=== PATIENT | female | born 1975 | race Caucasian/White ===

== ENCOUNTER 2016-11-07 16:39 | Inpatient (IN) | payer MEDICARE, OTHER ==
[2016-11-07] MEDS ORDERED: SODIUM CHLORIDE 0.9% 1,000 ML IV STA (17:19)
--- NOTE | 2016-11-07 17:21 | ED ---
Syncope HPI - General Chief Complaint: Syncope Stated Complaint: dizziness Time Seen by Provider: 11/07/16 16:57 Source: patient, EMS Mode of arrival: EMS Limitations: no limitations - History of Present Illness Initial Comments: This patient is a 41-year-old woman who presents to be evaluated after syncopal episode. The patient states that she has had a series of these, including an episode last June, an episode 3 weeks ago an episode 2 days ago, and again today. The patient states that her prior physician who is out of [facility] , had been performing a bit of a workup, and had also given her medication in case she had had a seizure. The patient states that with this episode, she got up and then she blacked out. She denies chest pain, dyspnea, palpitations, diaphoresis. MD Complaint: loss of consciousness -: minutes(s) Prodromal Symptoms: lightheaded -: second(s) Witnessed: no Current Symptoms: none Context: standing up - Related Data Home Medications Medication Instructions Recorded Confirmed Acetaminophen with Codeine 1 tab PO Q12H PRN 11/07/16 11/07/16 [Tylenol w/codeine #4] Albuterol Inhaler [Ventolin Hfa 1 - 2 puff INHALATION RT-QID PRN 11/07/16 Inhaler] Cranberry/Vitamin C 4200mg 1 cap PO DAILY 11/07/16 11/07/16 FLUoxetine HCL [PROzac] 60 mg PO DAILY 11/07/16 11/07/16 Fluticasone Nasal Standard [Flonase 2 spr EA NOSTRIL DAILY 11/07/16 11/07/16 Nasal Standard] Insulin Aspart [NovoLOG Flexpen] See Protocol SQ ACHS 11/07/16 11/07/16 Insulin Glargine,Hum.rec.anlog 30 unit SQ BID 11/07/16 11/07/16 [Lantus Solostar] Lisinopril [Zestril] 20 mg PO DAILY 11/07/16 11/07/16 Melatonin 5 mg PO HS 11/07/16 11/07/16 Multivitamins, Thera [Multivitamin 1 tab PO DAILY 11/07/16 11/07/16 (formulary)] Phenylephrine HCl [Sudafed PE] 10 mg PO Q6H PRN 11/07/16 11/07/16 Pregabalin [Lyrica] 100 mg PO QID 11/07/16 11/07/16 Tolnaftate [Tinactin] 1 applic TOPICAL BID PRN 11/07/16 11/07/16 busPIRone HCL 15 mg PO BID 11/07/16 11/07/16 levETIRAcetam [Keppra] 500 mg PO BID 11/07/16 11/07/16 metFORMIN HCL [Glucophage] 500 mg PO AC-BID 11/07/16 11/07/16 Allergies Allergy/AdvReac Type Severity Reaction Status Date / Time No Known Allergies Allergy Verified 11/07/16 17:01 Review of Systems ROS Statement: Those systems with pertinent positive or pertinent negative responses have been documented in the HPI. ROS Other: All systems not noted in ROS Statement are negative. Constitutional: Reports: weakness (Generalized). Denies: fever, chills Eyes: Denies: vision change Respiratory: Denies: cough, dyspnea Cardiovascular: Reports: syncope. Denies: chest pain, palpitations, edema Gastrointestinal: Denies: abdominal pain, vomiting, diarrhea Genitourinary: Denies: dysuria, hematuria Musculoskeletal: Denies: back pain Skin: Denies: rash Neurological: Denies: headache, weakness, numbness Past Medical History Past Medical History: Coronary Artery Disease (CAD), Diabetes Mellitus, Liver Disease Additional Past Medical History / Comment(s): Hep C "genotype 4" History of Any Multi-Drug Resistant Organisms: MRSA Date of last positivie culture/infection: 2015 MDRO Source:: leg Past Surgical History: Section, Cholecystectomy Additional Past Surgical History / Comment(s): leg surgery, back tumor removal Past Psychological History: No Psychological Hx Reported Smoking Status: Never smoker Past Alcohol Use History: None Reported Past Drug Use History: None Reported General Exam Limitations: no limitations General appearance: alert, in no apparent distress Head exam: Present: atraumatic, normocephalic Eye exam: Present: normal appearance, PERRL, EOMI. Absent: scleral icterus, conjunctival injection, nystagmus ENT exam: Present: mucous membranes dry Neck exam: Present: normal inspection, full ROM. Absent: tenderness, meningismus Respiratory exam: Present: normal lung sounds bilaterally. Absent: respiratory distress, wheezes, rales, rhonchi, stridor, chest wall tenderness Cardiovascular Exam: Present: regular rate, normal rhythm, normal heart sounds. Absent: systolic murmur, diastolic murmur, rubs, gallop GI/Abdominal exam: Present: soft. Absent: distended, tenderness, guarding, rebound, mass Extremities exam: Present: normal inspection, normal capillary refill. Absent: pedal edema, calf tenderness Back exam: Present: normal inspection. Absent: CVA tenderness (R), CVA tenderness (L) Neurological exam: Present: alert, oriented X3, CN II-XII intact. Absent: motor sensory deficit Skin exam: Present: warm, dry, intact, normal color. Absent: rash Course Vital Signs 11/07/16 16:54 Temperature 98.6 F Pulse Rate 65 Respiratory 18 Rate Blood Pressure 90/50 O2 Sat by Pulse 96 Oximetry EKG Findings - EKG Results: EKG: interpreted by ORQUIDEA JACKSON, sinus rhythm (Rate approximate 67 bpm), normal axis, normal QRS, normal ST/T, no acute changes - NM, Pacemaker, Normal: Normal tracing: normal tracing Disposition Referrals: Nonstaff,Physician [Primary Care Provider] - 1-2 days
[2016-11-07 17:41] LABS: Basophils # (A) 0.1 k/uL (0-0.2); Basophils % (A) 1 %; CH 30.3; CHCM 33.9; Eosinophils # (A) 0.2 k/uL (0-0.7); Eosinophils % (A) 2 %; HCT 41.7 % (34.0-46.0); HDW 2.47; HGB 13.8 gm/dL (11.4-16.0); Luc # (Auto) 0.11; Luc % (Auto) 2; Lymphocytes % (A) 40 %; MCH 29.7 pg (25.0-35.0); MCHC 33.1 g/dL (31.0-37.0); MCV 89.8 fL (80.0-100.0); Mean Platelet Volume 8.7; Monocytes # (A) 0.3 k/uL (0-1.0); Monocytes % (A) 4 %; Neutrophils # (A) 3.9 k/uL (1.3-7.7); Neutrophils % (A) 51 %; RBC 4.65 m/uL (3.80-5.40); RDW 13.5 % (11.5-15.5); WBC 7.6 k/uL (3.8-10.6); WBC (Perox) 7.42
[2016-11-07 17:54] LABS: ALT 33 U/L (9-52); Alkaline Phosphatase 71 U/L (38-126); Anion Gap 7 mmol/L; Blood Urea Nitrogen 11 mg/dL (7-17); Calcium 9.2 mg/dL (8.4-10.2); Carbon Dioxide 23 mmol/L (22-30); Chloride 106 mmol/L (98-107); Glucose 297 mg/dL (74-99); Magnesium 1.4 mg/dL (1.6-2.3); Non-African American GFR(MDRD) >60 (>60 ml/min/1.73 sqM); Sodium 136 mmol/L (137-145); Total Bilirubin 0.8 mg/dL (0.2-1.3); Total Protein 6.8 g/dL (6.3-8.2)
[2016-11-07 17:55] LABS: Partial Thromboplastin Time 23.9 sec (22.0-30.0); Prothrombin Time 10.5 sec (9.0-12.0)
[2016-11-07 18:01] LABS: Potassium 5.4 mmol/L (3.5-5.1)
[2016-11-07 18:02] LABS: AST 45 U/L (14-36)
[2016-11-07 18:08] LABS: Creatine Kinase 52 U/L (30-135)
--- NOTE | 2016-11-07 18:17 | CT ---
EXAMINATION TYPE: CT brain hannah arreguin DATE OF EXAM: 11/07/2016 COMPARISON: NONE HISTORY: Patient complains of syncopeal episode today with probable fall. Patient has no head or nec k complaints at time of study. CT DLP: 1300.5 mGycm Automated exposure control for dose reduction was used. TECHNIQUE: CT scan of the head and cervical spine are performed without contrast. FINDINGS: Ventricles of normal size. There is no mass effect nor midline shift. There is no sign of intracranial hemorrhage. The calvarium is intact. Cervical vertebra have normal spacing and alignment. Posterior elements are intact. Facet joints appe ar normal. Skull base is intact. IMPRESSION: Negative CT scan of the brain. Negative CT scan of the cervical spine.
--- NOTE | 2016-11-07 18:18 | XR ---
EXAMINATION TYPE: XR chest 1V portable DATE OF EXAM: 11/07/2016 COMPARISON: NONE HISTORY: Syncope TECHNIQUE: Single frontal view of the chest is obtained. FINDINGS: Heart and mediastinum are normal. Lungs are clear. Diaphragm is normal. There are chest le ads. IMPRESSION: Normal chest
[2016-11-07 18:20] LABS: Creatine Kinase MB 0.5 ng/mL (0.0-2.4); Troponin I <0.012 ng/mL (0.000-0.034)
[2016-11-07 18:46] LABS: Appearance,Urine Cloudy (Clear); Bacteria,Urine Many /hpf; Bilirubin,Urine Negative (Negative); Glucose,Urine (UA) 4+ (Negative); Ketones,Urine Negative (Negative); Leukocyte Esterase,Urine Moderate (Negative); Mucus,Urine Rare /hpf; Nitrite,Urine Positive (Negative); Particle Count 51760; Protein,Urine Negative (Negative); RBC,Urine 8 /hpf (0-5); Specific Gravity,Urine 1.009 (1.001-1.035); Squamous Epithelial Cell,Urine 4 /hpf (0-4); UA Billing (MACRO vs. MICRO) MICRO; Urobilinogen,Urine <2.0 mg/dL (<2.0); WBC,Urine 73 /hpf (0-5)
[2016-11-07] MEDS ORDERED: MAGNESIUM SULFATE-D5W PMX 1 GM in DEXTROSE/WATER 1 100ML.BAG IVPB ONE (18:50)
[2016-11-07] MEDS ORDERED: SODIUM CHLORIDE 0.9% 1,000 ML IV ONE (18:50)
[2016-11-07] MEDS ORDERED: INSULIN REGULAR 100 UNIT/ML VIAL SQ STA (18:50)
[2016-11-07] MEDS ORDERED: ACETAMINOPHEN TAB 325 MG TAB PO STA (19:00)
[2016-11-07] MEDS ORDERED: IBUPROFEN 600 MG TAB PO STA (19:00)
[2016-11-07] MEDS ORDERED: Acetaminophen-Codeine 300-30mg TAB PO PRN (19:19)
[2016-11-07] MEDS ORDERED: ALBUTEROL NEBULIZED 2.5 MG/3 ML INHALATION PRN (19:19)
[2016-11-07] MEDS ORDERED: CLOTRIMAZOLE 1% CREAM 15 GM TUBE TOPICAL PRN (19:19)
[2016-11-07] MEDS: MELATONIN 5 MG TABLET PO SCH (20:45)
[2016-11-07] MEDS: levETIRAcetam 500 MG TAB PO SCH (20:45)
[2016-11-07] MEDS: busPIRone HCl 5 MG TAB PO SCH (20:45)
[2016-11-07] MEDS: PREGABALIN 100 MG CAP PO SCH (20:49)
[2016-11-07 21:01] LABS: Glucose,Whole Blood 340 mg/dL (75-99)
[2016-11-07] MEDS: INSULIN LISPRO (humaLOG) 300 UNIT/3 ML VIAL SQ SCH (21:26)
[2016-11-07] MEDS: INSULIN GLARGINE 100 UNIT/ML 10 ML VIAL SQ SCH (21:28)
[2016-11-07] MEDS: metFORMIN 500 MG TAB PO SCH (21:28)
[2016-11-07] MEDS: SODIUM CHLORIDE 0.9% 1,000 ML IV SCH (21:29)
[2016-11-07 22:06] LABS: Hemoglobin A1C 9.2 % (4.2-6.1)
[2016-11-07] MEDS: CIPROFLOXACIN HCL 500 MG TAB PO SCH (23:20)
[2016-11-07 23:22] LABS: Creatine Kinase 33 U/L (30-135)
[2016-11-07] MEDS: IBUPROFEN 600 MG TAB PO PRN (23:23)
[2016-11-07 23:36] LABS: Creatine Kinase MB 0.4 ng/mL (0.0-2.4); Troponin I <0.012 ng/mL (0.000-0.034)
[2016-11-08 00:16] LABS: Glucose,Whole Blood 50 mg/dL (75-99)
[2016-11-08 00:50] LABS: Glucose,Whole Blood 77 mg/dL (75-99)
[2016-11-08] MEDS: Acetaminophen-Codeine 300-30mg TAB PO PRN ×3 (04:39→20:19)
[2016-11-08 04:52] LABS: Cholesterol 162 mg/dL (<200); HDL Cholesterol 32 mg/dL (40-60)
[2016-11-08 05:03] LABS: Creatine Kinase 38 U/L (30-135)
[2016-11-08 05:15] LABS: Creatine Kinase MB 0.5 ng/mL (0.0-2.4); Troponin I <0.012 ng/mL (0.000-0.034)
[2016-11-08] MEDS: IBUPROFEN 600 MG TAB PO PRN ×3 (05:47→21:37)
[2016-11-08 05:48] LABS: Glucose,Whole Blood 97 mg/dL (75-99)
[2016-11-08] MEDS: SODIUM CHLORIDE 0.9% 1,000 ML IV SCH ×2 (05:48→16:36)
[2016-11-08] MEDS: INSULIN LISPRO (humaLOG) 300 UNIT/3 ML VIAL SQ SCH ×4 (05:48→21:40)
[2016-11-08] MEDS: metFORMIN 500 MG TAB PO SCH ×2 (06:42→17:01)
[2016-11-08] MEDS ORDERED: metFORMIN 500 MG TAB PO SCH (07:30)
[2016-11-08] MEDS: FLUTICASONE 50MCG/SPRAY NASAL 16GM EA NOSTRIL SCH (07:48)
[2016-11-08] MEDS: PREGABALIN 100 MG CAP PO SCH ×4 (07:48→20:19)
[2016-11-08] MEDS: MULTIVITAMINS, THERA 1 EACH TAB PO SCH (07:48)
[2016-11-08] MEDS: FLUoxetine HCL 20 MG CAP PO SCH (07:49)
[2016-11-08] MEDS: busPIRone HCl 5 MG TAB PO SCH ×2 (07:49→20:14)
[2016-11-08] MEDS: CIPROFLOXACIN HCL 500 MG TAB PO SCH ×2 (07:49→20:14)
[2016-11-08] MEDS: levETIRAcetam 500 MG TAB PO SCH ×2 (07:49→20:15)
[2016-11-08] MEDS: INSULIN GLARGINE 100 UNIT/ML 10 ML VIAL SQ SCH ×2 (07:49→21:40)
--- NOTE | 2016-11-08 08:11 | P.CRDCN ---
History of Present Illness Consult date: 11/08/16 Requesting physician: Gurpreet Weir Consult reason: sycope Chief complaint: Syncope History of present illness: This is a 41-year-old female with history of hypertension, diabetes, hyperlipidemia, hepatitis C nonsmoker, occasional marijuana use most recently on Tuesday, rare EtOH, family history of premature coronary artery disease. She presented to the hospital with a syncopal episode. According to the patient she 's been having episodes where she becomes extremely dizzy and then passes out. In August of this year she was started on medication for seizures although she states she has not had a neurological evaluation performed. In spite of being put on this medication, patient continues to have a syncopal episodes. Chest x- ray normal. CAT scan of the head and spine normal. EKG on admission showed normal sinus rhythm with no acute changes. Blood pressure on arrival here 90/50 , heart rate in the 60s, afebrile, 96% on room air. CBC normal, d-dimer negative. Potassium 5.4, sodium 136, BUN 11, creatinine 0.5. Glucose on arrival 340, hemoglobin A1c 9.2, magnesium level I.4 which was replaced, and some 1.7 this morning. Troponins 3 have been negative. Positive UTI. At the time of my examination this morning, patient denies any dizziness or lightheadedness. Blood pressure sitting 110/70, heart rate in the 50s. Past Medical History Past Medical History: Coronary Artery Disease (CAD), Diabetes Mellitus, Liver Disease Additional Past Medical History / Comment(s): Hep C "genotype 4" History of Any Multi-Drug Resistant Organisms: MRSA Date of last positivie culture/infection: 2015 MDRO Source:: leg Past Surgical History: Section, Cholecystectomy Additional Past Surgical History / Comment(s): x3, leg surgery, back tumor removal Past Psychological History: No Psychological Hx Reported Smoking Status: Current some day smoker Past Alcohol Use History: None Reported Past Drug Use History: None Reported - Past Family History Mother Family Medical History: Cancer Additional Family Medical History / Comment(s): of breast ca Father Family Medical History: Unable to Obtain Medications and Allergies Home Medications Medication Instructions Recorded Confirmed Type Acetaminophen with Codeine 1 tab PO Q12H PRN 11/07/16 11/07/16 History [Tylenol w/codeine #4] Albuterol Inhaler [Ventolin Hfa 1 - 2 puff INHALATION RT-QID PRN 11/07/16 History Inhaler] Cranberry/Vitamin C 4200mg 1 cap PO DAILY 11/07/16 11/07/16 History FLUoxetine HCL [PROzac] 60 mg PO DAILY 11/07/16 11/07/16 History Fluticasone Nasal [place] [Flonase 2 spr EA NOSTRIL DAILY 11/07/16 11/07/16 History Nasal [place]] Insulin Aspart [NovoLOG Flexpen] See Protocol SQ ACHS 11/07/16 11/07/16 History Insulin Glargine,Hum.rec.anlog 30 unit SQ BID 11/07/16 11/07/16 History [Lantus Solostar] Lisinopril [Zestril] 20 mg PO DAILY 11/07/16 11/07/16 History Melatonin 5 mg PO HS 11/07/16 11/07/16 History Multivitamins, Thera [Multivitamin 1 tab PO DAILY 11/07/16 11/07/16 History (formulary)] Phenylephrine HCl [Sudafed PE] 10 mg PO Q6H PRN 11/07/16 11/07/16 History Pregabalin [Lyrica] 100 mg PO QID 11/07/16 11/07/16 History Tolnaftate [Tinactin] 1 applic TOPICAL BID PRN 11/07/16 11/07/16 History busPIRone HCL 15 mg PO BID 11/07/16 11/07/16 History levETIRAcetam [Keppra] 500 mg PO BID 11/07/16 11/07/16 History metFORMIN HCL [Glucophage] 500 mg PO AC-BID 11/07/16 11/07/16 History Allergies Allergy/AdvReac Type Severity Reaction Status Date / Time No Known Allergies Allergy Verified 11/07/16 17:01 Physical Exam Vitals: Vital Signs Temp Pulse Pulse Pulse Pulse Resp BP 11/08/16 07:53 97 F L 58 L 18 11/08/16 04:00 97.2 F L 55 L 18 11/08/16 00:00 52 L 18 11/07/16 20:15 98.3 F 58 L 18 121/73 11/07/16 20:00 96.1 F L 56 L 18 11/07/16 19:12 56 L 102/66 11/07/16 18:42 60 101/58 11/07/16 18:19 62 105/55 11/07/16 17:53 66 77 62 11/07/16 16:54 98.6 F 65 18 90/50 BP BP BP BP Pulse Ox 11/08/16 07:53 109/70 98 11/08/16 04:00 105/67 96 11/08/16 00:00 95/51 98 11/07/16 20:15 100 11/07/16 20:00 101/63 100 11/07/16 19:12 99 11/07/16 18:42 99 11/07/16 18:19 99 11/07/16 17:53 82/53 87/57 84/54 11/07/16 16:54 96 Intake and Output 11/07/16 11/08/16 11/08/16 22:59 06:59 14:59 Intake Total 1000 200 Output Total 300 Balance 1000 -100 Intake: IV 1000 Sodium Chloride 0.9% 1, 1000 000 ml @ 100 mls/hr IV . Q10H [facility] Rx#:[id number] Oral 200 Output: Urine 300 Other: # Voids 2 Weight 68.039 kg 72.7 kg PHYSICAL EXAMINATION: HEENT: Head is atraumatic, normocephalic. Pupils equal, round. Neck is supple. There is no elevated jugular venous pressure. HEART EXAMINATION: Heart S1, S2 normal. No murmur or gallop heard. CHEST EXAMINATION: Lungs are clear to auscultation and precussion. No chest wall tenderness is noted on palpation or with deep breathing. ABDOMEN: Soft, nontender. Bowel sounds are heard. No organomegaly noted. EXTREMITIES: 2+ peripheral pulses with no evidence of peripheral edema and no calf tenderness noted. NEUROLOGIC patient is awake, alert and oriented -3. . Results 11/07/16 16:47 11/08/16 00:52 Cardiac Enzymes 11/07/16 11/07/16 11/07/16 Range/Units 16:47 16:47 22:31 AST 45 H (14-36) U/L CK-MB (CK-2) 0.5 0.4 (0.0-2.4) ng/mL Troponin I <0.012 <0.012 (0.000-0.034) ng/mL 11/08/16 Range/Units 04:27 AST (14-36) U/L CK-MB (CK-2) 0.5 (0.0-2.4) ng/mL Troponin I <0.012 (0.000-0.034) ng/mL Coagulation 11/07/16 Range/Units 16:47 PT 10.5 (9.0-12.0) sec APTT 23.9 (22.0-30.0) sec Lipids 11/08/16 Range/Units 04:27 Triglycerides 143 (<150) mg/dL Cholesterol 162 (<200) mg/dL HDL Cholesterol 32 L (40-60) mg/dL CBC 11/07/16 Range/Units 16:47 WBC 7.6 (3.8-10.6) k/uL RBC 4.65 (3.80-5.40) m/uL Hgb 13.8 (11.4-16.0) gm/dL Hct 41.7 (34.0-46.0) % Plt Count 257 (150-450) k/uL Comprehensive Metabolic Panel 11/07/16 11/08/16 Range/Units 16:47 00:52 Sodium 136 L (137-145) mmol/L Potassium 5.4 H (3.5-5.1) mmol/L Chloride 106 (98-107) mmol/L Carbon Dioxide 23 (22-30) mmol/L BUN 11 (7-17) mg/dL Creatinine 0.55 (0.52-1.04) mg/dL Glucose 297 H 89 (74-99) mg/dL Calcium 9.2 (8.4-10.2) mg/dL AST 45 H (14-36) U/L ALT 33 (9-52) U/L Alkaline Phosphatase 71 (38-126) U/L Total Protein 6.8 (6.3-8.2) g/dL Albumin 4.0 (3.5-5.0) g/dL Current Medications Generic Name Dose Route Start Last Admin Trade Name Freq PRN Reason Stop Dose Admin Acetaminophen/Codeine Phosphate 1 each 11/07/16 21:17 11/08/16 04:39 Tylenol #3 PO 1 each Q6HR PRN Administration Pain Albuterol Sulfate 2.5 mg 11/07/16 19:19 Ventolin Nebulized INHALATION RT-QID PRN Shortness Of Breath Aspirin 325 mg 11/08/16 09:00 11/08/16 07:48 Aspirin PO 325 mg DAILY [facility] Administration Buspirone HCl 15 mg 11/07/16 21:00 11/08/16 07:49 Buspar PO 15 mg BID [facility] Administration Ciprofloxacin 500 mg 11/07/16 23:00 11/08/16 07:49 Cipro PO 11/10/16 23:01 500 mg BID [facility] Administration Clotrimazole 1 applic 11/07/16 19:19 Lotrimin Cream TOPICAL BID PRN Skin Irritation Fluoxetine HCl 60 mg 11/08/16 09:00 11/08/16 07:49 Prozac PO 60 mg DAILY [facility] Administration Fluticasone Propionate 2 spray 11/08/16 09:00 11/08/16 07:48 Flonase Nasal [place] EA NOSTRIL 2 spray DAILY [facility] Administration Sodium Chloride 1,000 mls @ 100 mls/hr 11/07/16 19:30 11/08/16 05:48 Saline 0.9% IV 100 mls/hr .Q10H [facility] Administration Ibuprofen 600 mg 11/07/16 22:45 11/08/16 05:47 Motrin PO 600 mg Q6HR PRN Administration Moderate Pain Insulin Glargine 30 unit 11/07/16 21:15 11/08/16 07:49 Lantus SQ 30 unit BID [facility] Administration Insulin Human Lispro 0 unit 11/07/16 21:00 11/08/16 05:48 Humalog SQ Not Given ACHS [facility] Protocol Levetiracetam 500 mg 11/07/16 21:00 11/08/16 07:49 Keppra PO 500 mg BID [facility] Administration Lisinopril 20 mg 11/08/16 09:00 11/08/16 07:49 Zestril PO 20 mg DAILY [facility] Administration Melatonin 5 mg 11/07/16 21:00 11/07/16 20:45 Melatonin PO 5 mg HS [facility] Administration Metformin HCl 500 mg 11/07/16 21:30 11/08/16 06:42 Glucophage PO 500 mg AC-BID [facility] Administration Multivitamins 1 each 11/08/16 12:00 11/08/16 07:48 Theragran PO 1 each DAILY@1200 [facility] Administration Pregabalin 100 mg 11/07/16 22:00 11/08/16 07:48 Lyrica PO 100 mg QID [facility] Administration Intake and Output 11/07/16 11/08/16 11/08/16 22:59 06:59 14:59 Intake Total 1000 200 Output Total 300 Balance 1000 -100 Intake: IV 1000 Sodium Chloride 0.9% 1, 1000 000 ml @ 100 mls/hr IV . Q10H [facility] Rx#:[id number] Oral 200 Output: Urine 300 Other: # Voids 2 Weight 68.039 kg 72.7 kg 11/07/16 16:47 11/08/16 00:52 EKG Interpretations (text) EKG shows normal sinus rhythm with no acute changes. Assessment and Plan Plan: Assessment and plan #1 symptoms of dizziness with subsequent syncopal episodes. CT of the brain negative. #2 diagnosis of seizures in the past, patient recently started on seizure medication in the form of Keppra in August of this year. #3 hypertension, on lisinopril #4 diabetes, uncontrolled # 5 hyperlipidemia #6 hepatitis C #7 smoking history, patient states she quit smoking approximately 2 years ago Plan We will obtain an echocardiogram with Doppler study. Continue to monitor for any tachycardia or bradycardia arrhythmias. We will also check orthostatic blood pressure and heart rate every shift. Further recommendations to follow. DNP note has been reviewed, I agree with a documented findings and plan of care. Patient was seen and examined.
[2016-11-08] MEDS ORDERED: LISINOPRIL 20 MG TAB PO SCH (09:00)
[2016-11-08] MEDS ORDERED: ASPIRIN 325 MG TAB PO SCH (09:00)
--- NOTE | 2016-11-08 10:24 | ECHOF ---
Referral Reason:syncope MEASUREMENTS -------- HEIGHT: 162.6 cm WEIGHT: 72.6 kg BP: 109/70 IVSd: 1.1 cm (0.6 - 1.1) LVIDd: 4.0 cm (3.9 - 5.3) LVPWd: 1.0 cm (0.6 - 1.1) IVSs: 1.4 cm LVIDs: 2.8 cm LVPWs: 1.4 cm Ao Diam: 2.7 cm (2.0 - 3.7) AV Cusp: 1.8 cm (1.5 - 2.6) LA Diam: 3.4 cm (2.7 - 3.8) MV EXCURSION: 6.377 mm (> 18.000) MV EF SLOPE: 81 mm/s (70 - 150) EPSS: 0.9 cm MV E Larry: 1.23 m/s MV DecT: 221 ms MV A Larry: 0.45 m/s MV E/A Ratio: 2.71 RAP: 5.00 mmHg RVSP: 24.33 mmHg FINDINGS -------- Sinus rhythm. This was a technically good study. Left ventricular wall thickness is normal. Overall left ventricular systolic function is normal with, an EF between 55 - 60 %. The right ventricle is normal in size and function. The left atrium is normal in size. The right atrium is normal in size. The aortic valve is trileaflet, and appears structurally normal. No aortic stenosis or regurgitation. There is trace mitral regurgitation. Mild tricuspid regurgitation present. The right ventricular systolic pressure, as measured by Doppler, is 24.33mmHg. Pulmonic valve appears structurally normal. The aortic root size is normal. The pericardium is normal. CONCLUSIONS -------- 1. Sinus rhythm. 2. Mild tricuspid regurgitation present. 3. The right ventricular systolic pressure, as measured by Doppler, is 24.33mmHg. 4. Pulmonic valve appears structurally normal. 5. The aortic root size is normal. 6. The pericardium is normal. 7. This was a technically good study. 8. Left ventricular wall thickness is normal. 9. Overall left ventricular systolic function is normal with, an EF between 55 - 60 %. 10. The right ventricle is normal in size and function. 11. The left atrium is normal in size. 12. The right atrium is normal in size. 13. The aortic valve is trileaflet, and appears structurally normal. No aortic stenosis or regurgitation. 14. There is trace mitral regurgitation. SPOUT POSITIONER: Lyudmila Henderson RDCS
--- NOTE | 2016-11-08 10:56 | P.CRDCN ---
History of Present Illness History of present illness: Patient interviewed and examined 2 episodes of dizziness followed by brief syncope and fall Both episodes occurred immediately upon standing up. 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 Date of last positivie culture/infection: 2015 MDRO Source:: leg Past Surgical History: Section, Cholecystectomy Additional Past Surgical History / Comment(s): x3, leg surgery, back tumor removal Past Psychological History: No Psychological Hx Reported Smoking Status: Current some day smoker Past Alcohol Use History: None Reported Past Drug Use History: None Reported - Past Family History Mother Family Medical History: Cancer Additional Family Medical History / Comment(s): of breast ca Father Family Medical History: Unable to Obtain Medications and Allergies Home Medications Medication Instructions Recorded Confirmed Type Acetaminophen with Codeine 1 tab PO Q12H PRN 11/07/16 11/07/16 History [Tylenol w/codeine #4] Albuterol Inhaler [Ventolin Hfa 1 - 2 puff INHALATION RT-QID PRN 11/07/16 History Inhaler] Cranberry/Vitamin C 4200mg 1 cap PO DAILY 11/07/16 11/07/16 History FLUoxetine HCL [PROzac] 60 mg PO DAILY 11/07/16 11/07/16 History Fluticasone Nasal [place] [Flonase 2 spr EA NOSTRIL DAILY 11/07/16 11/07/16 History Nasal [place]] Insulin Aspart [NovoLOG Flexpen] See Protocol SQ ACHS 11/07/16 11/07/16 History Insulin Glargine,Hum.rec.anlog 30 unit SQ BID 11/07/16 11/07/16 History [Lantus Solostar] Lisinopril [Zestril] 20 mg PO DAILY 11/07/16 11/07/16 History Melatonin 5 mg PO HS 11/07/16 11/07/16 History Multivitamins, Thera [Multivitamin 1 tab PO DAILY 11/07/16 11/07/16 History (formulary)] Phenylephrine HCl [Sudafed PE] 10 mg PO Q6H PRN 11/07/16 11/07/16 History Pregabalin [Lyrica] 100 mg PO QID 11/07/16 11/07/16 History Tolnaftate [Tinactin] 1 applic TOPICAL BID PRN 11/07/16 11/07/16 History busPIRone HCL 15 mg PO BID 11/07/16 11/07/16 History levETIRAcetam [Keppra] 500 mg PO BID 11/07/16 11/07/16 History metFORMIN HCL [Glucophage] 500 mg PO AC-BID 11/07/16 11/07/16 History Allergies Allergy/AdvReac Type Severity Reaction Status Date / Time No Known Allergies Allergy Verified 11/07/16 17:01 Physical Exam Vitals: Vital Signs Temp Pulse Pulse Pulse Pulse Resp BP 11/08/16 08:44 11/08/16 08:00 18 11/08/16 07:53 97 F L 58 L 18 11/08/16 04:00 97.2 F L 55 L 18 11/08/16 00:00 52 L 18 11/07/16 20:15 98.3 F 58 L 18 121/73 11/07/16 20:00 96.1 F L 56 L 18 11/07/16 19:12 56 L 102/66 11/07/16 18:42 60 101/58 11/07/16 18:19 62 105/55 11/07/16 17:53 66 77 62 11/07/16 16:54 98.6 F 65 18 90/50 BP BP BP BP Pulse Ox 11/08/16 08:44 126/70 111/67 115/66 11/08/16 08:00 11/08/16 07:53 109/70 98 11/08/16 04:00 105/67 96 11/08/16 00:00 95/51 98 11/07/16 20:15 100 11/07/16 20:00 101/63 100 11/07/16 19:12 99 11/07/16 18:42 99 11/07/16 18:19 99 11/07/16 17:53 82/53 87/57 84/54 11/07/16 16:54 96 Intake and Output 11/07/16 11/08/16 11/08/16 22:59 06:59 14:59 Intake Total 1000 200 Output Total 300 Balance 1000 -100 Intake: IV 1000 Sodium Chloride 0.9% 1, 1000 000 ml @ 100 mls/hr IV . Q10H [facility] Rx#:[id number] Oral 200 Output: Urine 300 Other: # Voids 2 Weight 68.039 kg 72.7 kg Results 11/07/16 16:47 11/08/16 00:52 Cardiac Enzymes 11/07/16 11/07/16 11/07/16 Range/Units 16:47 16:47 22:31 AST 45 H (14-36) U/L CK-MB (CK-2) 0.5 0.4 (0.0-2.4) ng/mL Troponin I <0.012 <0.012 (0.000-0.034) ng/mL 11/08/16 Range/Units 04:27 AST (14-36) U/L CK-MB (CK-2) 0.5 (0.0-2.4) ng/mL Troponin I <0.012 (0.000-0.034) ng/mL Coagulation 11/07/16 Range/Units 16:47 PT 10.5 (9.0-12.0) sec APTT 23.9 (22.0-30.0) sec Lipids 11/08/16 Range/Units 04:27 Triglycerides 143 (<150) mg/dL Cholesterol 162 (<200) mg/dL HDL Cholesterol 32 L (40-60) mg/dL CBC 11/07/16 Range/Units 16:47 WBC 7.6 (3.8-10.6) k/uL RBC 4.65 (3.80-5.40) m/uL Hgb 13.8 (11.4-16.0) gm/dL Hct 41.7 (34.0-46.0) % Plt Count 257 (150-450) k/uL Comprehensive Metabolic Panel 11/07/16 11/08/16 Range/Units 16:47 00:52 Sodium 136 L (137-145) mmol/L Potassium 5.4 H (3.5-5.1) mmol/L Chloride 106 (98-107) mmol/L Carbon Dioxide 23 (22-30) mmol/L BUN 11 (7-17) mg/dL Creatinine 0.55 (0.52-1.04) mg/dL Glucose 297 H 89 (74-99) mg/dL Calcium 9.2 (8.4-10.2) mg/dL AST 45 H (14-36) U/L ALT 33 (9-52) U/L Alkaline Phosphatase 71 (38-126) U/L Total Protein 6.8 (6.3-8.2) g/dL Albumin 4.0 (3.5-5.0) g/dL Current Medications Generic Name Dose Route Start Last Admin Trade Name Freq PRN Reason Stop Dose Admin Acetaminophen/Codeine Phosphate 1 each 11/07/16 21:17 11/08/16 10:39 Tylenol #3 PO 1 each Q6HR PRN Administration Pain Albuterol Sulfate 2.5 mg 11/07/16 19:19 Ventolin Nebulized INHALATION RT-QID PRN Shortness Of Breath Aspirin 325 mg 11/08/16 09:00 11/08/16 07:48 Aspirin PO 325 mg DAILY [facility] Administration Buspirone HCl 15 mg 11/07/16 21:00 11/08/16 07:49 Buspar PO 15 mg BID [facility] Administration Ciprofloxacin 500 mg 11/07/16 23:00 11/08/16 07:49 Cipro PO 11/10/16 23:01 500 mg BID [facility] Administration Clotrimazole 1 applic 11/07/16 19:19 Lotrimin Cream TOPICAL BID PRN Skin Irritation Fluoxetine HCl 60 mg 11/08/16 09:00 11/08/16 07:49 Prozac PO 60 mg DAILY [facility] Administration Fluticasone Propionate 2 spray 11/08/16 09:00 11/08/16 07:48 Flonase Nasal [place] EA NOSTRIL 2 spray DAILY [facility] Administration Sodium Chloride 1,000 mls @ 100 mls/hr 11/07/16 19:30 11/08/16 05:48 Saline 0.9% IV 100 mls/hr .Q10H [facility] Administration Ibuprofen 600 mg 11/07/16 22:45 11/08/16 05:47 Motrin PO 600 mg Q6HR PRN Administration Moderate Pain Insulin Glargine 30 unit 11/07/16 21:15 11/08/16 07:49 Lantus SQ 30 unit BID [facility] Administration Insulin Human Lispro 0 unit 11/07/16 21:00 11/08/16 05:48 Humalog SQ Not Given ACHS [facility] Protocol Levetiracetam 500 mg 11/07/16 21:00 11/08/16 07:49 Keppra PO 500 mg BID [facility] Administration Lisinopril 20 mg 11/08/16 09:00 11/08/16 07:49 Zestril PO 20 mg DAILY [facility] Administration Melatonin 5 mg 11/07/16 21:00 11/07/16 20:45 Melatonin PO 5 mg HS [facility] Administration Metformin HCl 500 mg 11/07/16 21:30 11/08/16 06:42 Glucophage PO 500 mg AC-BID [facility] Administration Multivitamins 1 each 11/08/16 12:00 11/08/16 07:48 Theragran PO 1 each DAILY@1200 [facility] Administration Pregabalin 100 mg 11/07/16 22:00 11/08/16 07:48 Lyrica PO 100 mg QID [facility] Administration Intake and Output 11/07/16 11/08/16 11/08/16 22:59 06:59 14:59 Intake Total 1000 200 Output Total 300 Balance 1000 -100 Intake: IV 1000 Sodium Chloride 0.9% 1, 1000 000 ml @ 100 mls/hr IV . Q10H [facility] Rx#:[id number] Oral 200 Output: Urine 300 Other: # Voids 2 Weight 68.039 kg 72.7 kg 11/07/16 16:47 11/08/16 00:52
[2016-11-08 11:39] LABS: Glucose,Whole Blood 170 mg/dL (75-99)
[2016-11-08 15:21] VITALS: BMI 27.5
--- NOTE | 2016-11-08 15:36 | P.HPIM ---
History of Present Illness H&P Date: 11/08/16 Chief Complaint: Syncope This is a 41-year-old female comes in the hospital after sustaining a syncopal episode. Patient states that she loss consciousness for less than 5 seconds. Patient has had a previous history of this for over 2 years. Patient was evaluated at another facility. Patient was seen by a neurologist in the [facility]. Patient initially was thought to have seizure disorder as patient has had one episode with loss of bladder function. Apparently EEGs at that time were negative for any acute abnormalities patient was started on Keppra however continued to have these episodes of losing consciousness and generalized weakness for short duration Patient comes in to the hospital as she is visiting someone in the area Patient apparently has a history of occasional marijuana use hepatitis C dyslipidemia diabetes mellitus hypertension. Patient sustained a fall on her right shoulder and x-ray in the emergency room was negative UA appears to be slightly abnormal however patient denies having any symptoms CAT scan of the head was negative EKG does not show ST-T wave changes however is slightly bradycardic. Patient blood pressures are borderline low. 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 Date of last positivie culture/infection: 2015 MDRO Source:: leg Past Surgical History: Section, Cholecystectomy Additional Past Surgical History / Comment(s): x3, leg surgery, back tumor removal Past Psychological History: No Psychological Hx Reported Smoking Status: Current some day smoker Past Alcohol Use History: None Reported Past Drug Use History: None Reported - Past Family History Mother Family Medical History: Cancer Additional Family Medical History / Comment(s): of breast ca Father Family Medical History: Unable to Obtain Medications and Allergies Home Medications Medication Instructions Recorded Confirmed Type Acetaminophen with Codeine 1 tab PO Q12H PRN 11/07/16 11/07/16 History [Tylenol w/codeine #4] Albuterol Inhaler [Ventolin Hfa 1 - 2 puff INHALATION RT-QID PRN 11/07/16 History Inhaler] Cranberry/Vitamin C 4200mg 1 cap PO DAILY 11/07/16 11/07/16 History FLUoxetine HCL [PROzac] 60 mg PO DAILY 11/07/16 11/07/16 History Fluticasone Nasal [place] [Flonase 2 spr EA NOSTRIL DAILY 11/07/16 11/07/16 History Nasal [place]] Insulin Aspart [NovoLOG Flexpen] See Protocol SQ ACHS 11/07/16 11/07/16 History Insulin Glargine,Hum.rec.anlog 30 unit SQ BID 11/07/16 11/07/16 History [Lantus Solostar] Lisinopril [Zestril] 20 mg PO DAILY 11/07/16 11/07/16 History Melatonin 5 mg PO HS 11/07/16 11/07/16 History Multivitamins, Thera [Multivitamin 1 tab PO DAILY 11/07/16 11/07/16 History (formulary)] Phenylephrine HCl [Sudafed PE] 10 mg PO Q6H PRN 11/07/16 11/07/16 History Pregabalin [Lyrica] 100 mg PO QID 11/07/16 11/07/16 History Tolnaftate [Tinactin] 1 applic TOPICAL BID PRN 11/07/16 11/07/16 History busPIRone HCL 15 mg PO BID 11/07/16 11/07/16 History levETIRAcetam [Keppra] 500 mg PO BID 11/07/16 11/07/16 History metFORMIN HCL [Glucophage] 500 mg PO AC-BID 11/07/16 11/07/16 History Allergies Allergy/AdvReac Type Severity Reaction Status Date / Time No Known Allergies Allergy Verified 11/07/16 17:01 Physical Exam Vitals: Vital Signs Temp Pulse Pulse Pulse Pulse Resp BP 11/08/16 12:00 97.2 F L 61 18 11/08/16 08:44 11/08/16 08:00 18 11/08/16 07:53 97 F L 58 L 18 11/08/16 04:00 97.2 F L 55 L 18 11/08/16 00:00 52 L 18 11/07/16 20:15 98.3 F 58 L 18 121/73 11/07/16 20:00 96.1 F L 56 L 18 11/07/16 19:12 56 L 102/66 11/07/16 18:42 60 101/58 11/07/16 18:19 62 105/55 11/07/16 17:53 66 77 62 11/07/16 16:54 98.6 F 65 18 90/50 BP BP BP BP Pulse Ox 11/08/16 12:00 115/60 98 11/08/16 08:44 126/70 111/67 115/66 11/08/16 08:00 11/08/16 07:53 109/70 98 11/08/16 04:00 105/67 96 11/08/16 00:00 95/51 98 11/07/16 20:15 100 11/07/16 20:00 101/63 100 11/07/16 19:12 99 11/07/16 18:42 99 11/07/16 18:19 99 11/07/16 17:53 82/53 87/57 84/54 11/07/16 16:54 96 Intake and Output 11/08/16 11/08/16 11/08/16 06:59 14:59 22:59 Intake Total 1000 200 Output Total 1700 Balance 1000 -1500 Intake: IV 1000 Sodium Chloride 0.9% 1, 1000 000 ml @ 100 mls/hr IV . Q10H [facility] Rx#:[id number] Oral 200 Output: Urine 1700 Other: # Voids 2 Weight 72.7 kg 72.7 kg Patient Weight 11/09/16 06:59 Weight 72.7 kg Physical exam Gen. appearance oriented 3 in no distress Neck is supple no JVD Lungs good air entry clear to auscultation no rhonchi or wheezing Heart S1-S2 heard regular rate and rhythm no murmurs appreciated Abdomen is soft nontender no organomegaly bowel sounds are intact Neurologically cranial nerves II-12 grossly intact no focal motor or sensory deficits noted Skin no abnormalities appreciated musculoskeletal Significant tenderness over the right shoulder worsened with range of motion. Results CBC & Chem 7: 11/07/16 16:47 11/08/16 00:52 Labs: Abnormal Lab Results - Last 24 Hours (Table) 11/07/16 11/07/16 11/07/16 Range/Units 16:47 16:47 18:25 Sodium 136 L (137-145) mmol/L Potassium 5.4 H (3.5-5.1) mmol/L Glucose 297 H (74-99) mg/dL POC Glucose (mg/dL) (75-99) mg/dL Hemoglobin A1c 9.2 H (4.2-6.1) % Magnesium 1.4 L (1.6-2.3) mg/dL AST 45 H (14-36) U/L LDL Cholesterol, Calc (0-99) mg/dL HDL Cholesterol (40-60) mg/dL Urine Appearance Cloudy H (Clear) Urine Glucose (UA) 4+ H (Negative) Urine Blood Large H (Negative) Urine Nitrite Positive H (Negative) Ur Leukocyte Esterase Moderate H (Negative) Urine RBC 8 H (0-5) /hpf Urine WBC 73 H (0-5) /hpf Urine Bacteria Many H (None) /hpf Urine Mucus Rare H (None) /hpf 11/07/16 11/08/16 11/08/16 Range/Units 20:59 00:14 04:27 Sodium (137-145) mmol/L Potassium (3.5-5.1) mmol/L Glucose (74-99) mg/dL POC Glucose (mg/dL) 340 H 50 L (75-99) mg/dL Hemoglobin A1c (4.2-6.1) % Magnesium (1.6-2.3) mg/dL AST (14-36) U/L LDL Cholesterol, Calc 101 H (0-99) mg/dL HDL Cholesterol 32 L (40-60) mg/dL Urine Appearance (Clear) Urine Glucose (UA) (Negative) Urine Blood (Negative) Urine Nitrite (Negative) Ur Leukocyte Esterase (Negative) Urine RBC (0-5) /hpf Urine WBC (0-5) /hpf Urine Bacteria (None) /hpf Urine Mucus (None) /hpf 11/08/16 Range/Units 11:37 Sodium (137-145) mmol/L Potassium (3.5-5.1) mmol/L Glucose (74-99) mg/dL POC Glucose (mg/dL) 170 H (75-99) mg/dL Hemoglobin A1c (4.2-6.1) % Magnesium (1.6-2.3) mg/dL AST (14-36) U/L LDL Cholesterol, Calc (0-99) mg/dL HDL Cholesterol (40-60) mg/dL Urine Appearance (Clear) Urine Glucose (UA) (Negative) Urine Blood (Negative) Urine Nitrite (Negative) Ur Leukocyte Esterase (Negative) Urine RBC (0-5) /hpf Urine WBC (0-5) /hpf Urine Bacteria (None) /hpf Urine Mucus (None) /hpf Thrombosis Risk Factor Assmnt - Choose All That Apply Each Factor Represents 1 point: Age 41-60 years Thrombosis Risk Factor Assessment Total Risk Factor Score: 1 Thrombosis Risk Factor Assessment Level: Low Risk Assessment and Plan Plan: #1 syncope likely due to relative hypotension #2 family history of brain aneurysms #3 musculoskeletal injury to the right shoulder #4 hepatitis C #5 diabetes mellitus #6 history of CAD #7 ongoing polysubstance use Plan Continue monitoring the patient for the next 24 hours. Telemetry monitoring. Encourage ambulation Patient be given a dose of Toradol If patient's blood pressures improved with a change in medications recommended by cardiology patient will likely be monitored overnight and discharged home patient would benefit from MRA as patient has family history positive for aneurysms in the brain
[2016-11-08] MEDS ORDERED: KETOROLAC 30 MG/ML 1 ML VIAL IVP STA (16:07)
[2016-11-08 16:54] LABS: Glucose,Whole Blood 100 mg/dL (75-99)
[2016-11-08] MEDS: MELATONIN 5 MG TABLET PO SCH (20:15)
[2016-11-08 21:27] LABS: Glucose,Whole Blood 95 mg/dL (75-99)
[2016-11-08] MEDS: KETOROLAC 30 MG/ML 1 ML VIAL IVP PRN (23:17)
[2016-11-09] MEDS: SODIUM CHLORIDE 0.9% 1,000 ML IV SCH ×2 (02:12→11:24)
[2016-11-09] MEDS: Acetaminophen-Codeine 300-30mg TAB PO PRN ×2 (02:13→08:31)
[2016-11-09] MEDS: KETOROLAC 30 MG/ML 1 ML VIAL IVP PRN ×2 (04:45→11:17)
[2016-11-09 06:23] LABS: Glucose,Whole Blood 140 mg/dL (75-99)
[2016-11-09] MEDS: metFORMIN 500 MG TAB PO SCH (06:35)
[2016-11-09] MEDS: FLUTICASONE 50MCG/SPRAY NASAL 16GM EA NOSTRIL SCH (08:28)
[2016-11-09] MEDS: busPIRone HCl 5 MG TAB PO SCH (08:28)
[2016-11-09] MEDS: levETIRAcetam 500 MG TAB PO SCH (08:28)
[2016-11-09] MEDS: FLUoxetine HCL 20 MG CAP PO SCH (08:28)
[2016-11-09] MEDS: PREGABALIN 100 MG CAP PO SCH ×2 (08:28→12:39)
[2016-11-09] MEDS: CIPROFLOXACIN HCL 500 MG TAB PO SCH (08:28)
[2016-11-09] MEDS ORDERED: LISINOPRIL 10 MG TAB PO SCH (09:00)
[2016-11-09] MEDS ORDERED: ASPIRIN 81 MG CHEW PO SCH (09:00)
[2016-11-09 09:05] VITALS: RESP 16
[2016-11-09 09:13] LABS: Glucose,Whole Blood 177 mg/dL (75-99)
[2016-11-09] MEDS: INSULIN LISPRO (humaLOG) 300 UNIT/3 ML VIAL SQ SCH ×2 (09:13→12:01)
[2016-11-09] MEDS: INSULIN GLARGINE 100 UNIT/ML 10 ML VIAL SQ SCH (09:16)
[2016-11-09] MEDS: MULTIVITAMINS, THERA 1 EACH TAB PO SCH (11:23)
[2016-11-09 11:50] LABS: Glucose,Whole Blood 115 mg/dL (75-99)
[2016-11-09 12:42] VITALS: BP 110/70; PULSE 64; TEMP 98.4
--- NOTE | 2016-11-09 13:27 | P.DS ---
Providers Date of admission: 11/07/16 19:17 Attending physician: Gurpreet Weir MD Consults: 11/07/16 19:17 Consult Physician Routine Consulting Provider: Quinn Jasmine Consult Reason/Comments: syncope Do you want consulting provider notified?: Yes Primary care physician: Physician Nonstaff Hospital Course: This is a 41-year-old female comes in the hospital after sustaining a syncopal episode. Patient states that she loss consciousness for less than 5 seconds. Patient has had a previous history of this for over 2 years. Patient was evaluated at another facility. Patient was seen by a neurologist in the [facility]. Patient initially was thought to have seizure disorder as patient has had one episode with loss of bladder function. Apparently EEGs at that time were negative for any acute abnormalities patient was started on Keppra however continued to have these episodes of losing consciousness and generalized weakness for short duration Patient comes in to the hospital as she is visiting someone in the area Patient apparently has a history of occasional marijuana use hepatitis C dyslipidemia diabetes mellitus hypertension. Patient sustained a fall on her right shoulder and x-ray in the emergency room was negative UA appears to be slightly abnormal however patient denies having any symptoms CAT scan of the head was negative EKG does not show ST-T wave changes however is slightly bradycardic. Patient blood pressures are borderline low. Physical exam Gen. appearance oriented 3 in no distress Neck is supple no JVD Lungs good air entry clear to auscultation no rhonchi or wheezing Heart S1-S2 heard regular rate and rhythm no murmurs appreciated Abdomen is soft nontender no organomegaly bowel sounds are intact Neurologically cranial nerves II-12 grossly intact no focal motor or sensory deficits noted Skin no abnormalities appreciated musculoskeletal Significant tenderness over the right shoulder worsened with range of motion. Assessment and Plan Plan: #1 syncope likely due to relative hypotension #2 family history of brain aneurysms #3 musculoskeletal injury to the right shoulder #4 hepatitis C #5 diabetes mellitus #6 history of CAD #7 ongoing polysubstance use Patient's blood pressures have improved. We'll discharge the patient home if patient is able to family without any difficulty no telemetry events are noted we'll discontinue Sudafed Gentleman a follow-up with a neurologist in order to investigate risk of aneurysms. Plan - Discharge Summary New Discharge Prescriptions: New Lisinopril [Zestril] 10 mg PO DAILY tab Continue Acetaminophen with Codeine [Tylenol w/codeine #4] 1 tab PO Q12H PRN PRN Reason: Pain Albuterol Inhaler [Ventolin Hfa Inhaler] 1 - 2 puff INHALATION RT-QID PRN PRN Reason: Shortness Of Breath busPIRone HCL 15 mg PO BID Cranberry/Vitamin C 4200mg 1 cap PO DAILY FLUoxetine HCL [PROzac] 60 mg PO DAILY Fluticasone Nasal [place] [Flonase Nasal [place]] 2 spr EA NOSTRIL DAILY Insulin Aspart [NovoLOG Flexpen] See Protocol SQ [facility] Insulin Glargine,Hum.rec.anlog [Lantus Solostar] 30 unit SQ BID levETIRAcetam [Keppra] 500 mg PO BID Melatonin 5 mg PO HS metFORMIN HCL [Glucophage] 500 mg PO AC-BID Multivitamins, Thera [Multivitamin (formulary)] 1 tab PO DAILY Pregabalin [Lyrica] 100 mg PO QID Tolnaftate [Tinactin] 1 applic TOPICAL BID PRN PRN Reason: Skin Irritation Discontinued Lisinopril [Zestril] 20 mg PO DAILY Phenylephrine HCl [Sudafed PE] 10 mg PO Q6H PRN PRN Reason: Congestion Discharge Medication List Acetaminophen with Codeine [Tylenol w/codeine #4] 1 tab PO Q12H PRN 11/07/16 [ History] Albuterol Inhaler [Ventolin Hfa Inhaler] 1 - 2 puff INHALATION RT-QID PRN [History] Cranberry/Vitamin C 4200mg 1 cap PO DAILY 11/07/16 [History] FLUoxetine HCL [PROzac] 60 mg PO DAILY 11/07/16 [History] Fluticasone Nasal [place] [Flonase Nasal [place]] 2 spr EA NOSTRIL DAILY 11/07/16 [ History] Insulin Aspart [NovoLOG Flexpen] See Protocol SQ [facility] 11/07/16 [History] Insulin Glargine,Hum.rec.anlog [Lantus Solostar] 30 unit SQ BID 11/07/16 [ History] Melatonin 5 mg PO HS 11/07/16 [History] Multivitamins, Thera [Multivitamin (formulary)] 1 tab PO DAILY 11/07/16 [History ] Pregabalin [Lyrica] 100 mg PO QID 11/07/16 [History] Tolnaftate [Tinactin] 1 applic TOPICAL BID PRN 11/07/16 [History] busPIRone HCL 15 mg PO BID 11/07/16 [History] levETIRAcetam [Keppra] 500 mg PO BID 11/07/16 [History] metFORMIN HCL [Glucophage] 500 mg PO AC-BID 11/07/16 [History] Lisinopril [Zestril] 10 mg PO DAILY tab 11/09/16 [Rx] Follow up Appointment(s)/Referral(s): Violeta Flor MD [STAFF PHYSICIAN] - 1 Week Nonstaff,Physician [Primary Care Provider] - 1-2 days Discharge Disposition: HOME SELF-CARE
--- NOTE | 2016-11-09 14:24 | P.PN ---
Subjective Principal diagnosis: Syncope This is a 41-year-old female with history of hypertension, diabetes, hyperlipidemia, hepatitis C nonsmoker, occasional marijuana use most recently on Tuesday, rare EtOH, family history of premature coronary artery disease. She presented to the hospital with a syncopal episode. According to the patient she 's been having episodes where she becomes extremely dizzy and then passes out. In August of this year she was started on medication for seizures although she states she has not had a neurological evaluation performed. In spite of being put on this medication, patient continues to have a syncopal episodes. Chest x- ray normal. CAT scan of the head and spine normal. EKG on admission showed normal sinus rhythm with no acute changes. Blood pressure on arrival here 90/50 , heart rate in the 60s, afebrile, 96% on room air. CBC normal, d-dimer negative. Potassium 5.4, sodium 136, BUN 11, creatinine 0.5. Glucose on arrival 340, hemoglobin A1c 9.2, magnesium level I.4 which was replaced, and some 1.7 this morning. Troponins 3 have been negative. Positive UTI. At the time of my examination this morning, patient denies any dizziness or lightheadedness. Blood pressure sitting 110/70, heart rate in the 50s. 11/09/2016 Patient seen and examined this morning, blood pressure 110/70, heart rate in the 60s. Feeling much better overall on current dose of MEY inhibitor. Echocardiogram with Doppler study revealed an ejection fraction of 55-60%. From cardiology's perspective, patient may be able to be discharged once cleared by the primary. She will follow-up with her insole reinforcer as an outpatient. Objective - Vital Signs Vital signs: Vital Signs Temp 98.4 F 11/09/16 12:00 Pulse 64 11/09/16 12:00 Resp 16 11/09/16 12:00 BP 110/70 11/09/16 12:00 Pulse Ox 96 11/09/16 12:00 Intake & Output 11/08/16 11/09/16 11/09/16 18:59 06:59 18:59 Intake Total 400 1200 50 Output Total 1700 1 Balance -1300 1199 50 Weight 72.7 kg 75.1 kg Intake: IV 1200 Sodium Chloride 0.9% 1, 1200 000 ml @ 100 mls/hr IV . Q10H [facility] Rx#:[id number] Oral 400 50 Output: Urine 1700 1 Other: # Voids 1 - Exam PHYSICAL EXAMINATION: HEENT: Head is atraumatic, normocephalic. Pupils equal, round. Neck is supple. There is no elevated jugular venous pressure. HEART EXAMINATION: Heart S1, S2 normal. No murmur or gallop heard. CHEST EXAMINATION: Lungs are clear to auscultation and precussion. No chest wall tenderness is noted on palpation or with deep breathing. ABDOMEN: Soft, nontender. Bowel sounds are heard. No organomegaly noted. EXTREMITIES: 2+ peripheral pulses with no evidence of peripheral edema and no calf tenderness noted. NEUROLOGIC patient is awake, alert and oriented -3. - Labs CBC & Chem 7: 11/07/16 16:47 11/08/16 00:52 Labs: Abnormal Lab Results - Last 24 Hours (Table) 11/08/16 11/09/16 11/09/16 Range/Units 16:47 06:20 09:01 POC Glucose (mg/dL) 100 H 140 H 177 H (75-99) mg/dL 11/09/16 Range/Units 11:49 POC Glucose (mg/dL) 115 H (75-99) mg/dL Assessment and Plan Plan: Assessment and plan #1 symptoms of dizziness with subsequent syncopal episodes. CT of the brain negative. #2 diagnosis of seizures in the past, patient recently started on seizure medication in the form of Keppra in August of this year. #3 hypertension, on lisinopril #4 diabetes, uncontrolled # 5 hyperlipidemia #6 hepatitis C #7 smoking history, patient states she quit smoking approximately 2 years ago Plan Echocardiogram with Doppler study was performed which revealed normal left ventricular systolic function. From cardiology's perspective patient may be able to be discharged home to follow-up with her insole reinforcer as an outpatient. DNP note has been reviewed, I agree with a documented findings and plan of care. Patient was seen and examined.
== END 2016-11-09 16:08 | disposition home or self-care (01) | DRG 316 ==
LOC: EC 16:39 → 6SEL 19:17
PROVIDERS: ADMIT Internal Medicine; ATTEND Internal Medicine
DX: I95.9 Hypotension, unspecified (principal); E11.65 Type 2 diabetes mellitus with hyperglycemia; I10 Essential (primary) hypertension; I25.10 Atherosclerotic heart disease of native coronary artery without angina pectoris; F19.90 Other psychoactive substance use, unspecified, uncomplicated; B19.20 Unspecified viral hepatitis C without hepatic coma; R82.90 Unspecified abnormal findings in urine; E78.5 Hyperlipidemia, unspecified; G40.909 Epilepsy, unspecified, not intractable, without status epilepticus; S49.91XA Unspecified injury of right shoulder and upper arm, initial encounter; R00.1 Bradycardia, unspecified; F17.200 Nicotine dependence, unspecified, uncomplicated; F12.90 Cannabis use, unspecified, uncomplicated; Z80.3 Family history of malignant neoplasm of breast; Z82.49 Family history of ischemic heart disease and other diseases of the circulatory system; Z71.3 Dietary counseling and surveillance; Z79.899 Other long term (current) drug therapy; Z79.4 Long term (current) use of insulin; Z91.81 History of falling; Z86.14 Personal history of Methicillin resistant Staphylococcus aureus infection; Z79.02 Long term (current) use of antithrombotics/antiplatelets; Z79.891 Long term (current) use of opiate analgesic; Z79.51 Long term (current) use of inhaled steroids; Z82.0 Family history of epilepsy and other diseases of the nervous system; Z90.49 Acquired absence of other specified parts of digestive tract
CPT/HCPCS: 36415; 70450; 71010; 72125; 80053; 80061; 81001; 82550; 82553; 82947; 83036; 83735; 84484; 85025; 85379; 85610; 85730; 93005; 93306; 96361; 96365; 99285